=== PATIENT | male | born 1955 | race Caucasian/White ===

== ENCOUNTER 2019-04-12 12:50 | Inpatient (IN) | payer OTHER ==
[2019-04-12 14:06] LABS: #Basophils 0.1 thou/uL (0.0-0.2); #Eosinphils 0.1 thou/uL (0.0-0.7); #Lymphocytes 1.7 thou/uL (1.20-3.40); #Monocytes 0.6 thou/uL (0.11-0.59); #Neutrophils 7.8 thou/uL (1.40-6.50); %Basophils 0.5 % (0.0-1.0); %Eosinophils 1.2 % (0.0-10.0); %Lymphocytes 16.5 % (21.0-51.0); %Monocytes 5.8 % (0.0-10.0); Hemoglobin 6.7 g/dL (14.0-18.0); Mean Corpuscular HGB CONC 33.8 g/dL (32.0-36.0); Mean Corpuscular Hemoglobin 28.6 pg (27.0-31.0); Mean Corpuscular Volume 84.6 fL (78.0-98.0); Mean Platelet Volume 5.2 fL (7.4-10.4); Platelet Count 448 thou/uL (130-400); RBC Distribution Width 13.1 % (11.5-14.5); Red Blood Cell (RBC) Count 2.35 mill/uL (4.70-6.10); White Blood Cell (WBC) Count 10.2 thou/uL (4.8-10.8)
[2019-04-12 14:22] LABS: ALT (SGPT) Less than 7 U/L (8-55); AST (SGOT) 12 U/L (5-34); Albumin 2.9 g/dL (3.4-4.8); Alkaline Phosphatase 46 U/L (40-110); Anion Gap 7 mmol/L (10-20); BUN (Urea Nitrogen) 29 mg/dL (8.4-25.7); Bilirubin, Total Less than 0.2 mg/dL (0.2-1.2); Calc. Creatinine Clearance 0 mL/min (70-130); Calcium 7.5 mg/dL (7.8-10.44); Carbon Dioxide 27 mmol/L (23-31); Chloride 103 mmol/L (98-107); Estimated GFR-MDRD Greater than 90; Globulin 2.2 g/dL (2.4-3.5); Glucose 105 mg/dL (80-115); Potassium 4.4 mmol/L (3.5-5.1); Protein, Total 5.1 g/dL (5.8-8.1); Sodium 133 mmol/L (136-145)
--- NOTE | 2019-04-12 14:22 | RAD ---
Portable frontal chest radiograph: 04/12/2019 COMPARISON: 07/20/2013 HISTORY: Weakness FINDINGS: There is diffuse increased linear interstitial density with pulmonary hyperinflation, stabl e. Stable atherosclerotic calcification of the aortic arch. No pneumothorax or pleural fluid. No focal consolidation or alveolar edema. IMPRESSION: Chronic findings as detailed above. No evidence for acute cardiopulmonary disease.
[2019-04-12] MEDS ORDERED: Nicotine 14 MG PATCH ONE (15:13)
[2019-04-12] MEDS ORDERED: Pantoprazole 40 MG VIAL ONE (15:13)
[2019-04-12 15:16] LABS: Iron 30 ug/dL (65-175); Iron Binding Capacity, Total 206 mcg/dL (261-462)
[2019-04-12] MEDS ORDERED: Pantoprazole 80 MG, Admixture Fee 1 EACH in Sodium Chloride 0.9% 100 ML IVPB SCH (16:45)
[2019-04-12 16:49] VITALS: BMI 14.9
[2019-04-12] MEDS ORDERED: Pantoprazole 80 MG in Sodium Chloride 0.9% 100 ML IVPB SCH (17:15)
[2019-04-12 17:38] LABS: Troponin I Less than 0.010 ng/mL (< 0.028)
[2019-04-12 20:25] LABS: Troponin I 0.013 ng/mL (< 0.028)
[2019-04-12] MEDS: Gabapentin 400 MG CAP PO SCH (20:49)
[2019-04-12] MEDS: cycloSPORINE 0.05% Ophthalmic Droperette EA EYE SCH (20:56)
[2019-04-12] MEDS: Fluticasone Propionate Nasal Spray 16 gm Bottle NASAL SCH (20:56)
[2019-04-12] MEDS: Latanoprost 0.005% Ophth Soln 2.5 ml Bottle EA EYE SCH (20:57)
[2019-04-12] MEDS: Nicotine 21 MG PATCH TOP SCH (21:55)
[2019-04-12 21:58] LABS: Bilirubin Negative (Negative); Blood, Urine Negative (Negative); Clarity Clear (Clear); Glucose, Urine (Dipstick) Normal (Negative); Leukocyte Negative Leu/uL (Negative); Nitrite Negative (Negative); Protein, Urine (Dipstick) Negative (Neg-Trace); Urobilinogen Normal mg/dL (Less than 2)
[2019-04-12 23:06] LABS: Amphetamine Not Detected (NotDetected); Barbiturates Screen Not Detected (NotDetected); Benzodiazepine Screen Not Detected (NotDetected); Cocaine Metabolite Screen Not Detected (NotDetected); Medtox Control Line Valid? VALID (VALID); Medtox Reader # READER 4; Methadone Not Detected (NotDetected); Methamphetamine Not Detected (NotDetected); Opiate Screen Not Detected (NotDetected); Oxycodone Screen Not Detected (NotDetected); Phencyclidine (PCP) Not Detected (NotDetected); THC/Cannabinoid Screen Detected (NotDetected); Tricyclic Screen Not Detected (NotDetected)
--- NOTE | 2019-04-12 23:19 | CON ---
DATE OF CONSULTATION: 04/12/2019 CHIEF COMPLAINT: Weakness. HISTORY OF PRESENT ILLNESS: Mr. Tamayo is a 63-year-old man, who reports generalized weakness for the last couple of months. He has been falling and unable to care for himself well. He has lost 20 pounds over the last 6 months. He has some lower aching generalized abdominal pain most of the time. He has chronic back pain as well but does not take any NSAIDs. He reports constipation for the last 2 to 3 weeks with only one small bowel movement over that time. Finally, today he went into his primary care doctor, Dr. Russo and had a black stool while he was there. He was advised to come on to the emergency room for further care. In the emergency room, he was found to have severe anemia. He has had no nausea or vomiting. No fever. No chest pain or shortness of breath. PAST MEDICAL HISTORY: He reports he was treated for hepatitis C and cured of that virus few years ago in [place]. He has had chronic low back pain. He has had corneal transplant. He reports colonoscopy was done in 2014 and was normal. COPD. PAST SURGICAL HISTORY: Appendectomy, lower back surgery, corneal transplant, and carpal tunnel release. HABITS: The patient smoked 2 to 3 packs per day previously, however, for the last 6 months, he smokes more like half a pack a day. He quit alcohol in the early . He has a history of IV drug use and incarceration in the distant past. FAMILY HISTORY: Positive for prostate cancer in his father. Negative for GI malignancy. ALLERGIES: CODEINE. CURRENT OUTPATIENT MEDICATIONS: Gabapentin. Tramadol, but he does not take it because it causes nausea. He gets injections for his back periodically. He takes acyclovir and multiple eyedrops. He also has Flonase nasal spray. REVIEW OF SYSTEMS: Negative x10 systems reviewed except as stated in the history of present illness. PHYSICAL EXAMINATION: VITAL SIGNS: Temperature 97.9, pulse 84, and blood pressure 116/67. GENERAL: He is in no acute distress. Alert and oriented x3. EYES: Have no scleral icterus. Oropharynx is clear without lesions. He is pale. NECK: He has no cervical or supraclavicular lymphadenopathy. LUNGS: Clear to auscultation bilaterally. HEART: Regular rate and rhythm without murmur. ABDOMEN: Soft. Mild tenderness in the lower abdomen without guarding. Bowel sounds are present. EXTREMITIES: No lower extremity edema. RECTAL: Reveals black melenic stool in the rectal vault. LABORATORY DATA: White blood cell count 10.2, hemoglobin 6.7, and platelets 448. BUN 29 and creatinine 0.78. Iron 30, TIBC 206, and ferritin 51. Bilirubin 0.2, AST 12, ALT 7, alkaline phosphatase 46, and albumin 2.9. IMPRESSION: 1. Gastrointestinal bleed, presenting with melena and weakness. 2. Severe anemia of acute blood loss. 3. History of chronic obstructive pulmonary disease and ongoing tobacco abuse. 4. Weight loss of 20 pounds over the last 6 months. 5. Protein calorie malnutrition with an albumin of 2.9. RECOMMENDATIONS: 1. Proton pump inhibitor drip. 2. We will plan for EGD tomorrow morning. He did have solid food in the emergency room. 3. Transfusion, 2 units this evening. 4. If possible, it would be good to obtain his colonoscopy report from 2014. Job ID: [id number]
[2019-04-13] MEDS: traMADol HCl 50 MG TAB PO PRN ×3 (00:05→22:15)
--- NOTE | 2019-04-13 01:05 | HP ---
CHIEF COMPLAINT: Weakness, status post fall. HISTORY OF PRESENT ILLNESS: Mr. Tamayo is a 63-year-old male with past medical history of COPD, chronic pain, came to the office because of home feeling weak, fell three times at home in the last three weeks, unable to take care of himself. The patient indicated also he had constipation for a week and unable to take care of himself. He wanted to be placed in a mcc, but the patient was so weak, he could not go anywhere, so he returned to the hospital for evaluation. In the ER, the patient was evaluated and found to be severely anemic with hemoglobin of 6.7 with heme-positive stool. In the ER, the patient was given Protonix IV and admitted for further management PAST MEDICAL HISTORY: 1. COPD. 2. Chronic pain. 3. Hyperlipidemia. 4. History of eye problem. PAST SURGICAL HISTORY: 1. Status post carpal tunnel surgery. 2. Status post eye surgery. 3. Status post back surgery as well. CURRENT MEDICATIONS: The patient is on: 1. Acyclovir 800 mg daily. 2. Flonase nasal spray 1 spray daily. 3. Gabapentin 800 mg t.i.d. 4. Xalatan eyedrops at bedtime 1 drop. 5. Restasis eyedrops one drop each eye b.i.d. 6. Symbicort inhaler 160/4.5 two puffs b.i.d. 7. Proventil HFA two puffs q.i.d. p.r.n. 8. Atrovent inhaler 2 puffs q.i.d. 9. Prednisolone acetate 1% suspension 2 drops into affected eye 4 times a day. ALLERGIES: NKDA. FAMILY HISTORY: Nothing contributory. SOCIAL HISTORY: The patient lives alone. Smokes about 10 cigarettes a day. Has been smoking for a long time. No history of alcohol intake. REVIEW OF SYSTEMS: CARDIOVASCULAR: No chest pain, has shortness of breath. RESPIRATORY: No fever or cough. GASTROINTESTINAL: He has abdominal pain for few days and chronic back pain and leg pain. CENTRAL NERVOUS SYSTEM: No headache, dizziness. PHYSICAL EXAMINATION: GENERAL: The patient is alert, awake, oriented x3. VITAL SIGNS: Temperature 98, pulse 84, respirations 20, blood pressure 116/60. HEENT: Head is normocephalic and atraumatic. Pupils are equal and reactive. Nasopharynx is pale and dry. Hard and soft, no lesions. SKIN: Turgor decreased. NECK: Supple. No JVD. LUNGS: Breath sounds diminished bilaterally. Percussion dull bilaterally. No rales or rhonchi. HEART: S1, S2 regular. ABDOMEN: Soft. No tenderness. Normal bowel sounds. RECTAL: Exam done in the ER revealed heme-positive stool and melenic stool. NEUROLOGIC: No focal deficit. LABORATORY DATA: CBC shows WBC 10, hemoglobin 6.7, hematocrit 19, platelets 448. Metabolic panel; sodium 133, potassium 4.4, chloride 103, CO2 27, BUN 29, creatinine 0.7, glucose 105, calcium 7.5, serum iron 30, TIBC 206, ferritin level 51. IMAGING: Chest x-ray, COPD changes, no acute changes. ASSESSMENT: 1. Severe anemia, symptomatic. 2. Possible gastrointestinal bleeding. 3. Chronic obstructive pulmonary disease. 4. Status post multiple falls. 5. Unstable gait. 6. Weakness. 7. Chronic pain. PLAN: 1. Vital signs q.4 hours. 2. Activity as tolerated. 3. Allergies, NKDA. 4. Hep-Lock. 5. Diet, regular. 6. Protonix 40 mg IV piggyback daily. 7. Continue home medications. 8. DuoNeb q.i.d. p.r.n. 9. Transfuse packed red blood cells, 1 unit. 10. CBC, BMP in the morning. 11. GI consult. Job ID: [id number] MTDD
[2019-04-13] MEDS: Mometasone/Formoterol 120 PUFF INHALER INH SCH ×2 (06:41→19:35)
[2019-04-13 07:02] LABS: #Basophils 0.1 thou/uL (0.0-0.2); #Eosinphils 0.3 thou/uL (0.0-0.7); #Lymphocytes 4.7 thou/uL (1.20-3.40); #Monocytes 0.7 thou/uL (0.11-0.59); #Neutrophils 4.2 thou/uL (1.40-6.50); %Basophils 0.7 % (0.0-1.0); %Eosinophils 2.8 % (0.0-10.0); %Lymphocytes 47.7 % (21.0-51.0); %Monocytes 6.8 % (0.0-10.0); Hemoglobin 10.4 g/dL (14.0-18.0); Mean Corpuscular HGB CONC 32.4 g/dL (32.0-36.0); Mean Corpuscular Hemoglobin 27.4 pg (27.0-31.0); Mean Corpuscular Volume 84.6 fL (78.0-98.0); Mean Platelet Volume 5.7 fL (7.4-10.4); Platelet Count 526 thou/uL (130-400); RBC Distribution Width 13.4 % (11.5-14.5); Red Blood Cell (RBC) Count 3.81 mill/uL (4.70-6.10)
[2019-04-13 07:15] LABS: Anion Gap 12 mmol/L (10-20); BUN (Urea Nitrogen) 24 mg/dL (8.4-25.7); Calc. Creatinine Clearance 67 mL/min (70-130); Calcium 8.5 mg/dL (7.8-10.44); Carbon Dioxide 26 mmol/L (23-31); Chloride 104 mmol/L (98-107); Estimated GFR-MDRD Greater than 90; Glucose 92 mg/dL (80-115); Potassium 4.2 mmol/L (3.5-5.1); Sodium 138 mmol/L (136-145)
[2019-04-13] MEDS: Fluticasone Propionate Nasal Spray 16 gm Bottle NASAL SCH ×2 (08:41→20:17)
[2019-04-13] MEDS: cycloSPORINE 0.05% Ophthalmic Droperette EA EYE SCH ×2 (08:42→20:18)
[2019-04-13] MEDS ORDERED: Pantoprazole 40 MG VIAL IVP SCH ×3 (09:00→18:59)
[2019-04-13] MEDS ORDERED: Nicotine 21 MG PATCH TOP SCH (09:00)
[2019-04-13] MEDS ORDERED: EPINEPHrine 1 MG/10 ML Abboject SYRINGE ONE (10:09)
[2019-04-13] MEDS ORDERED: Promethazine HCl 25 MG/ML VIAL ONE (11:45)
[2019-04-13] MEDS ORDERED: Fentanyl 100 MCG/2 ML VIAL ONE (12:52)
[2019-04-13] MEDS: Gabapentin 400 MG CAP PO SCH ×3 (13:20→20:17)
--- NOTE | 2019-04-13 13:41 | CT ---
Exam: Abdomen CT without contrast Pelvic CT without contrast HISTORY: Patient does have ulcer cauterized. Eval for COMPARISON: None FINDINGS: Abdomen CT: There are multiple blebs in both lower lobes along with areas of atelectasis an d groundglass opacities which may represent a component of edema. No evidence of pneumothorax. Heart is enlarged. No significant pericardial fluid Atherosclerosis of a nonaneurysmal aorta Limited evaluation of the solid organs due to the lack of IV contrast. Grossly no solid organ abnorma lity. No gastrohepatic, retrocrural or periportal lymphadenopathy Unremarkable gallbladder Bilaterally no obstructive uropathy. No mesenteric mass, lymphadenopathy, or free air. There is slight stranding of the abdominal mesenter y, nonspecific. No significant fluid collection. . Limited evaluation the gastric mucosa. No obvious inflammatory change along the lesser curve greater vertebra of the stomach. No evidence of de finite extraluminal air along the greater or lesser curvature of the stomach. Note, there are small gas bubbles along the expected region of the duodenum which may be intraluminal. However, small pocke ts of extraluminal air cannot be excluded. These gas bubbles may be associated with the adjacent small bowel loop or colon. Limited evaluation of the alimentary canal. No evidence of bowel obstruction. There is fecal material in a nondistended, nondilated colon. CT PELVIS: Urinary bladder is unremarkable. There is free fluid in the pelvis. No mass, lymphadenopat hy or free air. There are no lytic or blastic lesions in the osseous IMPRESSION: Small pockets of gas bubble in the right upper quadrant, near the duodenum. Gas bubbles may be intral uminal. However, small extraluminal pockets of air due to perforation cannot be excluded. Results study discussed with Dr. Billings 04/13/2019 at 1:38 PM Code CR
--- NOTE | 2019-04-13 15:36 | OP ---
DATE OF PROCEDURE: 04/13/2019 PROCEDURE PERFORMED: Esophagogastroduodenoscopy with control of hemorrhage and biopsy. PREOPERATIVE DIAGNOSES: 1. Upper gastrointestinal bleed. 2. Anemia of acute blood loss. DESCRIPTION OF PROCEDURE: Informed consent was obtained from the patient. He was sedated with total intravenous anesthesia. The bite block was placed and the endoscope was advanced easily to the second portion of the duodenum and retroflexion was performed in the stomach. The esophagus was normal. The stomach had a large deep 2.5 cm ulcer on the proximal side of the incisura. There was a visible vessel in the base, that appeared high risk for rebleed. The ulcer was injected with epinephrine. A total of 7 mL of 1:10,000 epinephrine. The vessel bled actively with touch of the Gold probe. The vessel was cauterized extensively with the Gold probe 10-[place]izen [place] at 18 barry ultimately with good hemostasis achieved. The pylorus and first and second portions of the duodenum were unremarkable. IMPRESSION: 1. Deep 2.5 cm ulcer at the incisura with a visible vessel in the base, that appears high risk for rebleed. The ulcer was injected with epinephrine 7 mL. The vessel bled actively. The vessel was extensively cauterized with a 10-[place] Gold probe with good hemostasis. 2. Otherwise normal esophagogastroduodenoscopy. RECOMMENDATIONS: 1. Proton pump inhibitor drip for 72 hours. 2. If he bleeds again, then I recommend against repeating attempted endoscopic therapy as this is a very large vessel in the base of the ulcer and was already extensively cauterized. This is not amenable to clipping due to the fibrous base of the ulcer. If he bleeds again, he just needs to go straight to surgery. 3. Transfuse as needed. Job ID: [id number]
[2019-04-13] MEDS: prednisoLONE 1% Ophth Susp 5 ml Bottle EA EYE SCH (16:28)
[2019-04-13] MEDS: Acyclovir 800 mg Tablet PO SCH (16:28)
[2019-04-13] MEDS ORDERED: Pantoprazole 80 MG in Sodium Chloride 0.9% 100 ML IVP SCH (18:59)
[2019-04-13] MEDS: Latanoprost 0.005% Ophth Soln 2.5 ml Bottle EA EYE SCH (20:18)
[2019-04-13] MEDS: Nicotine 21 MG PATCH TOP SCH (21:25)
[2019-04-13] MEDS: Pantoprazole 80 MG, Admixture Fee 1 EACH in Sodium Chloride 0.9% 100 ML IVPB SCH (22:14)
[2019-04-14] MEDS: traMADol HCl 50 MG TAB PO PRN ×3 (04:43→20:35)
[2019-04-14] MEDS: Mometasone/Formoterol 120 PUFF INHALER INH SCH ×2 (08:04→19:12)
[2019-04-14] MEDS: Gabapentin 400 MG CAP PO SCH ×3 (08:52→20:35)
[2019-04-14] MEDS: Acyclovir 800 mg Tablet PO SCH (08:52)
[2019-04-14] MEDS: cycloSPORINE 0.05% Ophthalmic Droperette EA EYE SCH ×2 (08:53→20:34)
[2019-04-14] MEDS: Fluticasone Propionate Nasal Spray 16 gm Bottle NASAL SCH ×2 (08:53→20:33)
[2019-04-14] MEDS: Pantoprazole 80 MG, Admixture Fee 1 EACH in Sodium Chloride 0.9% 100 ML IVPB SCH ×2 (09:12→20:33)
[2019-04-14 11:46] LABS: #Basophils 0.1 thou/uL (0.0-0.2); #Eosinphils 0.3 thou/uL (0.0-0.7); #Lymphocytes 3.1 thou/uL (1.20-3.40); #Monocytes 0.6 thou/uL (0.11-0.59); %Basophils 0.7 % (0.0-1.0); %Eosinophils 2.9 % (0.0-10.0); %Monocytes 6.7 % (0.0-10.0); %Neutrophils 55.7 % (42.0-75.0); Hemoglobin 9.3 g/dL (14.0-18.0); Mean Corpuscular HGB CONC 33.1 g/dL (32.0-36.0); Mean Corpuscular Hemoglobin 28.4 pg (27.0-31.0); Mean Corpuscular Volume 85.9 fL (78.0-98.0); Mean Platelet Volume 5.1 fL (7.4-10.4); Platelet Count 466 thou/uL (130-400); RBC Distribution Width 13.3 % (11.5-14.5); Red Blood Cell (RBC) Count 3.27 mill/uL (4.70-6.10)
--- NOTE | 2019-04-14 11:57 | PRG ---
DATE OF SERVICE: 04/14/2019 This is a cross coverage for Dr. Finn Billings. SUBJECTIVE: This is a 63-year-old male, had EGD done by Dr. Finn Billings yesterday. He was found to have a very large ulceration over the incisura angularis. He underwent BICAP probe therapy and he has done well. He did have some abdominal pain after the procedure and had a CAT scan. The CAT did not show any pathology. This morning, he appears comfortable, but still has mild abdominal discomfort. No nausea, no vomiting. Not having any stool. He has multiple symptoms like back pain, leg pain, joint pain, etc. PHYSICAL EXAMINATION: GENERAL: He appears comfortable. He is thin built. VITAL SIGNS: Stable. Afebrile. Pulse 59, blood pressure 155/69. CARDIOVASCULAR SYSTEM AND LUNGS: Within normal limits. ABDOMEN: Soft. No organomegaly. No tenderness. No masses. The physical exam is actually very benign. The abdomen does not show any active findings. RECOMMENDATIONS: 1. CBC today. 2. Continue IV Protonix. 3. Regular diet today. Job ID: [id number]
[2019-04-14] MEDS: prednisoLONE 1% Ophth Susp 5 ml Bottle EA EYE SCH (12:22)
[2019-04-14 14:37] LABS: Troponin I Less than 0.010 ng/mL (< 0.028)
[2019-04-14] MEDS: Latanoprost 0.005% Ophth Soln 2.5 ml Bottle EA EYE SCH (20:34)
[2019-04-14 21:07] LABS: Troponin I 0.024 ng/mL (< 0.028)
[2019-04-14] MEDS: Nicotine 21 MG PATCH TOP SCH (21:38)
[2019-04-15] MEDS: traMADol HCl 50 MG TAB PO PRN ×3 (02:25→21:03)
[2019-04-15 04:28] LABS: #Basophils 0.1 thou/uL (0.0-0.2); #Eosinphils 0.3 thou/uL (0.0-0.7); #Lymphocytes 3.3 thou/uL (1.20-3.40); #Monocytes 0.8 thou/uL (0.11-0.59); #Neutrophils 4.6 thou/uL (1.40-6.50); %Basophils 0.8 % (0.0-1.0); %Eosinophils 3.5 % (0.0-10.0); %Lymphocytes 36.7 % (21.0-51.0); %Monocytes 8.3 % (0.0-10.0); %Neutrophils 50.8 % (42.0-75.0); Hemoglobin 8.5 g/dL (14.0-18.0); Mean Corpuscular HGB CONC 33.5 g/dL (32.0-36.0); Mean Corpuscular Hemoglobin 28.9 pg (27.0-31.0); Mean Corpuscular Volume 86.3 fL (78.0-98.0); Mean Platelet Volume 5.7 fL (7.4-10.4); Platelet Count 436 thou/uL (130-400); RBC Distribution Width 13.3 % (11.5-14.5); Red Blood Cell (RBC) Count 2.92 mill/uL (4.70-6.10)
[2019-04-15 04:43] LABS: Anion Gap 11 mmol/L (10-20); BUN (Urea Nitrogen) 16 mg/dL (8.4-25.7); Calc. Creatinine Clearance 58 mL/min (70-130); Calcium 8.1 mg/dL (7.8-10.44); Carbon Dioxide 26 mmol/L (23-31); Chloride 102 mmol/L (98-107); Estimated GFR-MDRD 82; Glucose 114 mg/dL (80-115); Sodium 135 mmol/L (136-145)
[2019-04-15] MEDS: Mometasone/Formoterol 120 PUFF INHALER INH SCH ×2 (06:53→18:13)
[2019-04-15] MEDS: Pantoprazole 80 MG, Admixture Fee 1 EACH in Sodium Chloride 0.9% 100 ML IVPB SCH ×2 (08:07→20:59)
[2019-04-15] MEDS: prednisoLONE 1% Ophth Susp 5 ml Bottle EA EYE SCH (08:08)
[2019-04-15] MEDS: Acyclovir 800 mg Tablet PO SCH (08:09)
[2019-04-15] MEDS: Fluticasone Propionate Nasal Spray 16 gm Bottle NASAL SCH ×2 (08:09→20:03)
[2019-04-15] MEDS: Gabapentin 400 MG CAP PO SCH ×3 (08:09→20:00)
[2019-04-15] MEDS: cycloSPORINE 0.05% Ophthalmic Droperette EA EYE SCH ×2 (08:09→20:02)
--- NOTE | 2019-04-15 11:09 | PRG ---
DATE OF SERVICE: 04/15/2019 SUBJECTIVE: This is a 63-year-old male, who has an EGD done 2 days ago gastric ulcer. The patient on clear liquid diet for 24 hours and advance regular diet yesterday. He is doing well. No abdominal pain. No nausea. No vomiting. He has had no stool today. The blood pressure trending down slowly. On 04/13/2019, he had a hemoglobin of 10.4 dropping to 9.3 yesterday and to 8.5. However, he has had no overt bleeding. He has really no complaints except for some vague abdominal pain. OBJECTIVE: VITAL SIGNS: Afebrile, pulse is 83, and blood pressure is 134/63. CARDIOVASCULAR SYSTEM AND LUNGS: Within normal limits. ABDOMEN: Soft. Abdomen is nontender. No organomegaly or masses. Bowel sounds normal. CLINICAL IMPRESSION: 1. Gastrointestinal bleeding. 2. Gastric ulcer, status post BICAP therapy. 3. Anemia due to blood loss. 4. Drop in blood count would be more like hemodilution bleeding. He has no overt bleeding. RECOMMENDATIONS: 1. Continue PPI. 2. Follow up H and H. 3. Transfuse p.r.n. Job ID: [id number]
[2019-04-15] MEDS: Latanoprost 0.005% Ophth Soln 2.5 ml Bottle EA EYE SCH (20:03)
[2019-04-15] MEDS: Nicotine 21 MG PATCH TOP SCH (21:05)
[2019-04-16] MEDS: traMADol HCl 50 MG TAB PO PRN ×2 (04:12→13:00)
[2019-04-16 05:05] LABS: #Eosinphils 0.3 thou/uL (0.0-0.7); #Lymphocytes 2.5 thou/uL (1.20-3.40); #Monocytes 0.7 thou/uL (0.11-0.59); #Neutrophils 7.6 thou/uL (1.40-6.50); %Basophils 0.3 % (0.0-1.0); %Eosinophils 2.5 % (0.0-10.0); %Lymphocytes 22.8 % (21.0-51.0); %Monocytes 6.4 % (0.0-10.0); Hemoglobin 6.9 g/dL (14.0-18.0); Mean Corpuscular HGB CONC 32.8 g/dL (32.0-36.0); Mean Corpuscular Hemoglobin 28.6 pg (27.0-31.0); Mean Corpuscular Volume 87.2 fL (78.0-98.0); Mean Platelet Volume 5.6 fL (7.4-10.4); Platelet Count 453 thou/uL (130-400); RBC Distribution Width 13.7 % (11.5-14.5); Red Blood Cell (RBC) Count 2.41 mill/uL (4.70-6.10); White Blood Cell (WBC) Count 11.2 thou/uL (4.8-10.8)
[2019-04-16 05:21] LABS: ALT (SGPT) Less than 7 U/L (8-55); AST (SGOT) 8 U/L (5-34); Albumin 2.8 g/dL (3.4-4.8); Alkaline Phosphatase 45 U/L (40-110); Anion Gap 10 mmol/L (10-20); BUN (Urea Nitrogen) 31 mg/dL (8.4-25.7); Bilirubin, Total Less than 0.2 mg/dL (0.2-1.2); Calc. Creatinine Clearance 68 mL/min (70-130); Calcium 8.1 mg/dL (7.8-10.44); Carbon Dioxide 28 mmol/L (23-31); Chloride 101 mmol/L (98-107); Estimated GFR-MDRD Greater than 90; Globulin 2.2 g/dL (2.4-3.5); Glucose 133 mg/dL (80-115); Potassium 4.1 mmol/L (3.5-5.1); Sodium 135 mmol/L (136-145)
[2019-04-16 05:44] LABS: HBCM Index 0.05 S/CO (0-0.79); HBSAg Index 0.15 S/CO (0-0.99); Hep A IgM AB Non-Reactive (NonReactive); Hep A IgM S/CO 0.22 S/CO (0-0.79); Hep B Surf Ag Non-Reactive S/CO (NonReactive); Hepatitis B Core IgM Abs Non-Reactive (NonReactive)
[2019-04-16 05:49] LABS: Hep C IgG Ab Reflex HepC Qnt (NonReactive)
[2019-04-16 05:50] LABS: Hep C Index 10.86 S/CO (0-0.79)
[2019-04-16] MEDS: Pantoprazole 80 MG, Admixture Fee 1 EACH in Sodium Chloride 0.9% 100 ML IVPB SCH (08:07)
[2019-04-16] MEDS: prednisoLONE 1% Ophth Susp 5 ml Bottle EA EYE SCH (09:16)
[2019-04-16] MEDS: Gabapentin 400 MG CAP PO SCH ×3 (09:16→21:19)
[2019-04-16] MEDS: Acyclovir 800 mg Tablet PO SCH (09:16)
[2019-04-16] MEDS: Fluticasone Propionate Nasal Spray 16 gm Bottle NASAL SCH ×2 (09:19→21:15)
[2019-04-16] MEDS: cycloSPORINE 0.05% Ophthalmic Droperette EA EYE SCH ×2 (10:12→21:17)
[2019-04-16] MEDS: Mometasone/Formoterol 120 PUFF INHALER INH SCH ×2 (10:35→18:39)
--- NOTE | 2019-04-16 18:48 | PRG ---
DATE OF SERVICE: 04/16/2019 SUBJECTIVE: Mr. Tamayo passed a 3 or 4 black large stools today. He states that they had formed but were black. He only had 1 small formed black stool yesterday. OBJECTIVE: VITAL SIGNS: Temperature 98.4, blood pressure 119/63, pulse 80. GENERAL: He is in no acute distress. He is awake and alert, oriented x3. LUNGS: Clear to auscultation bilaterally. HEART: Regular rate and rhythm without murmur. ABDOMEN: Soft, tender in the epigastric region without guarding. Bowel sounds are present. EXTREMITIES: No lower extremity edema. LABORATORY DATA: Hemoglobin decreased to 6.9 today from 8.5 yesterday. IMPRESSION: 1. Large gastric ulcer with bleeding vessel cauterized on 04/13/2019. He did well for the first few days, however, he today started passing black stool again and his hemoglobin dropped down. He is likely having some rebleed from the ulcer. 2. Hepatitis C antibody positive. RNA level pending. RECOMMENDATIONS: 1. Continue proton pump inhibitor drip. 2. 2 units of transfusion today. 3. Full liquids tonight and then n.p.o. past midnight. We will plan for endoscopy tomorrow. Dr. Ignacio will be on doing procedures tomorrow. Job ID: [id number]
[2019-04-16] MEDS: Latanoprost 0.005% Ophth Soln 2.5 ml Bottle EA EYE SCH (21:16)
[2019-04-16] MEDS: Nicotine 21 MG PATCH TOP SCH (21:18)
[2019-04-16] MEDS: HYDROcodone/Acetaminophen 5/325 mg Tablet PO PRN (21:18)
[2019-04-17] MEDS: Pantoprazole 80 MG, Admixture Fee 1 EACH in Sodium Chloride 0.9% 100 ML IVPB SCH (02:17)
[2019-04-17 05:24] LABS: #Basophils 0.1 thou/uL (0.0-0.2); #Eosinphils 0.3 thou/uL (0.0-0.7); #Lymphocytes 2.9 thou/uL (1.20-3.40); #Monocytes 0.8 thou/uL (0.11-0.59); #Neutrophils 6.2 thou/uL (1.40-6.50); %Basophils 0.6 % (0.0-1.0); %Eosinophils 3.1 % (0.0-10.0); %Lymphocytes 28.4 % (21.0-51.0); %Monocytes 7.4 % (0.0-10.0); %Neutrophils 60.5 % (42.0-75.0); Hemoglobin 9.2 g/dL (14.0-18.0); Mean Corpuscular HGB CONC 33.9 g/dL (32.0-36.0); Mean Corpuscular Hemoglobin 29.1 pg (27.0-31.0); Mean Corpuscular Volume 85.8 fL (78.0-98.0); Mean Platelet Volume 5.5 fL (7.4-10.4); Platelet Count 419 thou/uL (130-400); RBC Distribution Width 14.1 % (11.5-14.5); Red Blood Cell (RBC) Count 3.15 mill/uL (4.70-6.10); White Blood Cell (WBC) Count 10.3 thou/uL (4.8-10.8)
[2019-04-17 05:42] LABS: Anion Gap 9 mmol/L (10-20); BUN (Urea Nitrogen) 23 mg/dL (8.4-25.7); Calc. Creatinine Clearance 76 mL/min (70-130); Calcium 8.2 mg/dL (7.8-10.44); Carbon Dioxide 29 mmol/L (23-31); Chloride 100 mmol/L (98-107); Estimated GFR-MDRD Greater than 90; Glucose 94 mg/dL (80-115); Potassium 4.1 mmol/L (3.5-5.1); Sodium 134 mmol/L (136-145)
[2019-04-17] MEDS: Mometasone/Formoterol 120 PUFF INHALER INH SCH ×2 (06:42→17:54)
[2019-04-17] MEDS: HYDROcodone/Acetaminophen 5/325 mg Tablet PO PRN ×3 (09:14→20:52)
[2019-04-17] MEDS: Gabapentin 400 MG CAP PO SCH ×3 (09:17→20:45)
[2019-04-17] MEDS: Acyclovir 800 mg Tablet PO SCH (09:17)
[2019-04-17] MEDS: Fluticasone Propionate Nasal Spray 16 gm Bottle NASAL SCH ×2 (09:17→20:45)
--- NOTE | 2019-04-17 11:20 | PQF ---
Date: 04-17-19 ATTN: DR. MANOHAR DURÁN Please exercise your independent, professional judgment in responding to the clarification form. Clinical indicators are provided on the bottom of this form for your review Please check appropriate box(s): [ y] Protein Calorie Malnutrition: [ ] Mild [ y] Moderate [ ] Severe [ ] Other Malnutrition (please specify) __ [ ] Other diagnosis [ ] Unable to determine In addition, please specify: Present on Admission (POA): [ y] Yes [ ] No [ ] Unable to determine CLINICAL INDICATORS - SIGNS / SYMPTOMS / LABS: NUTRITION CONSULT 04-13-19: BMI 14.9 H&P: 04-12-19: TURGOR DECREASED CONSULT NOTE DR. ASKEW 04-12-19: HE HAS LOST 20 #OVER THE LAST 6 MONTHS. PROTEIN CALORIE MALNUTRITION WITH AN ALBUMIN OF 2.9 ENGINE ASSEMBLER CONSULT 04-13-19: Triggers MST 3 (-14-23 lb wt loss, eating poorly d/ t decreased appetite); Pt has no teeth and wants mech soft foods once diet advanced ; his appetite has been poor the past 3 weeks d/t stomach pain ; Typically eats 1 "good" meal per day; denied supplement use. MD reports 20 lb wt loss x [address] observed squared shoulders with bones protruding; moderate orbital fat pad loss; moderate muscle loss tricep and biceps RISK FACTORS: ENGINE ASSEMBLER CONSULT 04-13-19: his appetite has been poor the past 3 weeks d/t stomach pain ; He follows a regular diet at home, but often can't afford food d/t living on SSI/ Medicaid. TREATMENT: ENGINE ASSEMBLER CONSULT 04-13-19: 1. Recommend liberalized regular diet once medically feasible. 2. Recommend Ensure Enlive BID between meals once medically feasible, prefers vanilla. 3. Recommend daily MVI. 4. Recommend CM referral for resources to obtain food. 5. Pt is at risk for refeeding syndrome, monitor for electrolyte imbalances potassium phos and mg, edema, and abnormal blood glucose. Moderate Malnutrition (in acute illness) Energy Intake: <75% of estimated energy requirement for > 7 days Weight Loss: 1-2%/1 week; 5%/ 1 month; 7.5%/3 months Other: mild body fat loss; mild muscle mass loss; mild fluid accumulation; Severe Malnutrition (in acute illness) Energy Intake: < 50% of estimated energy requirement for > 5 days Weight Loss: >1-2%/1 week; >5%/1 month; >7.5%/3 months Other: moderate body fat loss; moderate muscle mass loss; moderate- severe fluid accumulation; measurably reduced front desk admin strength Moderate Malnutrition (in chronic illness) Energy Intake: <75% of estimated energy requirement for >1 month Weight Loss: 5%/1 month; 7.5%/3 months; 10%/6 months; 20%/1 year Other: mild body fat loss; mild muscle mass loss; mild fluid accumulation Severe Malnutrition (in chronic illness) Energy Intake: <75% of estimated energy requirement for >1 month Weight Loss: >5%/1 month; >7.5%/3 months; >10%/6 months; >20%/1 year Other: severe body fat loss; severe muscle mass loss; severe fluid accumulation ; measurably reduced front desk admin strength (This form is maintained as a part of the permanent medical record) 2014 [email or web address] All Rights Reserved MELANI [email or web address] Office: [phone] [facility]OS[facility]ITALM[facility]
[2019-04-17] MEDS: cycloSPORINE 0.05% Ophthalmic Droperette EA EYE SCH ×2 (11:44→20:46)
--- NOTE | 2019-04-17 13:24 | PQF ---
DATE: 04-17-19 ATTN: DR. MIUGEL GIBSON Please exercise your independent, professional judgment in responding to the clarification form. Clinical indicators are provided on the bottom of this form for your review Please check appropriate box(s): [ ] Hyponatremia please specify etiology, if known [ ] Insignificant Lab Values [ ] Other diagnosis [ x ] Unable to determine In addition, please specify: Present on Admission (POA): [ ] Yes [ x ] No [ ] Unable to determine CLINICAL INDICATORS - SIGNS / SYMPTOMS / LABS: SODIUM: 04-09-19: 135 04-10-19: 134 04-12-19: 134 04-14-19: 133 04-14-19: 133 04-15-19: 131 04-15-19: 130 04-16-19: 129 04-17-19: 133 RISK FACTORS: CONSULT NOTE DR. HOOD 04-16-19: PUMA WITH CKD TREATMENTS: MONITORING LABS 04-07-19 TO 04-17-19 ER NOTES 04-07-19: NS IVF (This form is maintained as a part of the permanent medical record) 2014 [employer] All Rights Reserved MELANI [email or web address] Office: [phone] [facility]ENTER[facility]
[2019-04-17] MEDS ORDERED: ePHEDrine/0.9% NaCl/PF SYRINGE 50 mg/10 ml ONE (13:57)
[2019-04-17] MEDS ORDERED: Promethazine HCl 25 MG/ML VIAL IM PRN (14:00)
[2019-04-17] MEDS ORDERED: Promethazine HCl 25 MG/ML VIAL SLOW IVP PRN (14:00)
[2019-04-17] MEDS ORDERED: Ondansetron HCl/PF 4 MG/2 ML Vial IVP PRN (14:00)
[2019-04-17] MEDS: prednisoLONE 1% Ophth Susp 5 ml Bottle EA EYE SCH (15:16)
[2019-04-17] MEDS ORDERED: ePHEDrine 50 MG/ML VIAL ONE (15:45)
[2019-04-17] MEDS ORDERED: Lidocaine 1% PF 5 ML VIAL ONE (15:45)
[2019-04-17] MEDS ORDERED: PROPOFOL 200 MG/20 ML VIAL ONE (15:45)
--- NOTE | 2019-04-17 20:23 | OP ---
DATE OF PROCEDURE: 04/17/2019 PROCEDURE PERFORMED: Esophagogastroduodenoscopy. PREPROCEDURE DIAGNOSES: Upper gastrointestinal hemorrhage with recent known incisura ulcer, large with high-risk stigmata for rebleeding, now with recurrent melena. POSTPROCEDURE DIAGNOSES: 1. Ulcer at incisura of the stomach with a couple of black pigmented areas, but no visible vessels. No stigmata of high risk for rebleeding. White base. 2. Paige esophagitis. RECOMMENDATIONS: 1. Diflucan orally. 2. Change Protonix drip to IV q.12 with next bag. 3. Monitor hemoglobin and hematocrit. DESCRIPTION OF PROCEDURE: After the patient was informed of the risks, benefits, and possible complications of endoscopy including perforation, reaction to medication, and aspiration, informed consent was obtained. The endoscope was advanced through the esophagus, stomach, to the second and third portions of the duodenum and slowly removed. The esophagus was normal. The stomach was notable for a 1.5 cm ulcer on the incisura of the stomach. It was white base. No stigmata of high risk for rebleeding. Retroflexed views revealed normal cardia of the stomach. The duodenum was normal. The second and third portions were normal. In the esophagus, there was adherent areas of white plaque consistent with Paige. The scope was removed. The patient tolerated the procedure well without complications. Job ID: [id number]
[2019-04-17] MEDS: Pantoprazole 40 MG VIAL IVP SCH (20:44)
[2019-04-17] MEDS: Latanoprost 0.005% Ophth Soln 2.5 ml Bottle EA EYE SCH (20:45)
[2019-04-17] MEDS: Nicotine 21 MG PATCH TOP SCH (20:46)
[2019-04-18] MEDS: Pantoprazole 80 MG, Admixture Fee 1 EACH in Sodium Chloride 0.9% 100 ML IVPB SCH ×2 (00:32→11:05)
[2019-04-18] MEDS: HYDROcodone/Acetaminophen 5/325 mg Tablet PO PRN ×4 (03:16→23:25)
[2019-04-18] MEDS: Mometasone/Formoterol 120 PUFF INHALER INH SCH ×2 (06:31→20:16)
[2019-04-18 07:21] LABS: Hemoglobin 10.6 g/dL (14.0-18.0)
[2019-04-18] MEDS: Acyclovir 800 mg Tablet PO SCH (09:10)
[2019-04-18] MEDS: Fluconazole 100 MG TAB PO SCH (09:10)
[2019-04-18] MEDS: Gabapentin 400 MG CAP PO SCH ×4 (09:10→20:26)
[2019-04-18] MEDS: Pantoprazole 40 MG VIAL IVP SCH (09:11)
[2019-04-18] MEDS: prednisoLONE 1% Ophth Susp 5 ml Bottle EA EYE SCH (09:11)
[2019-04-18] MEDS: Fluticasone Propionate Nasal Spray 16 gm Bottle NASAL SCH ×2 (09:11→20:26)
[2019-04-18] MEDS: cycloSPORINE 0.05% Ophthalmic Droperette EA EYE SCH ×2 (11:05→20:26)
[2019-04-18 14:09] LABS: Hep C PCR-Quant HCV Not Detected IU/mL (.)
--- NOTE | 2019-04-18 15:50 | PRG ---
DATE OF SERVICE: 04/18/2019 SUBJECTIVE: Mr. Tamayo has had no bowel movement today. No abdominal pain. His hemoglobin is 10.6 today. OBJECTIVE: VITAL SIGNS: Temperature 99.3, pulse 107, blood pressure 119/57. GENERAL: He is in no acute distress. Alert and oriented x3. LUNGS: Have some expiratory wheezes. HEART: Regular rate and rhythm. ABDOMEN: Soft, nontender, nondistended. Bowel sounds are present. EXTREMITIES: No lower extremity edema. IMPRESSION: 1. Gastric ulcer on the proximal side of the incisura. This is likely secondary to NSAIDs and smoking. Biopsies were negative for Helicobacter pylori. 2. Paige esophagitis. RECOMMENDATIONS: 1. Change pantoprazole to 40 mg twice daily by mouth for the next 2 weeks and then 40 mg once daily. 2. Repeat EGD in 6 to 8 weeks to verify healing of the ulcer. 3. Complete a 14-day course of fluconazole 100 mg daily. This was likely secondary to the nasal steroid. 4. The patient requests that we change his diet to pureed due to his lack of teeth. 5. I will sign off. Please call if GI can be of assistance. Job ID: [id number]
[2019-04-18] MEDS: Latanoprost 0.005% Ophth Soln 2.5 ml Bottle EA EYE SCH (20:26)
[2019-04-18] MEDS: Nicotine 21 MG PATCH TOP SCH (21:20)
[2019-04-19 06:00] LABS: Anion Gap 13 mmol/L (10-20); BUN (Urea Nitrogen) 20 mg/dL (8.4-25.7); Calc. Creatinine Clearance 70 mL/min (70-130); Calcium 8.2 mg/dL (7.8-10.44); Carbon Dioxide 26 mmol/L (23-31); Chloride 101 mmol/L (98-107); Estimated GFR-MDRD Greater than 90; Glucose 118 mg/dL (80-115); Potassium 4.1 mmol/L (3.5-5.1); Sodium 136 mmol/L (136-145)
[2019-04-19 06:20] LABS: Band 24 % (5-11); Eosinophils 1 % (0-10); Hemoglobin 8.7 g/dL (14.0-18.0); Lymphocytes 13 % (21-51); MDiff Complete? YES; Mean Corpuscular HGB CONC 32.7 g/dL (32.0-36.0); Mean Corpuscular Hemoglobin 28.8 pg (27.0-31.0); Mean Corpuscular Volume 88.1 fL (78.0-98.0); Mean Platelet Volume 5.7 fL (7.4-10.4); Monocytes 4 % (0-10); Neutrophil 58 % (42-75); Platelet Count 466 thou/uL (130-400); RBC Distribution Width 14.4 % (11.5-14.5); Red Blood Cell (RBC) Count 3.01 mill/uL (4.70-6.10); White Blood Cell (WBC) Count 20.5 thou/uL (4.8-10.8)
[2019-04-19] MEDS: Mometasone/Formoterol 120 PUFF INHALER INH SCH ×2 (06:52→18:02)
[2019-04-19] MEDS: HYDROcodone/Acetaminophen 5/325 mg Tablet PO PRN ×3 (08:17→20:30)
[2019-04-19] MEDS: Fluconazole 100 MG TAB PO SCH (08:18)
[2019-04-19] MEDS: Acyclovir 800 mg Tablet PO SCH (08:18)
[2019-04-19] MEDS: Gabapentin 400 MG CAP PO SCH ×3 (08:18→20:29)
[2019-04-19] MEDS: Fluticasone Propionate Nasal Spray 16 gm Bottle NASAL SCH ×2 (08:20→20:28)
[2019-04-19] MEDS: prednisoLONE 1% Ophth Susp 5 ml Bottle EA EYE SCH (08:20)
[2019-04-19] MEDS: cycloSPORINE 0.05% Ophthalmic Droperette EA EYE SCH ×3 (09:49→20:29)
--- NOTE | 2019-04-19 16:49 | RAD ---
EXAM: Chest 2 views: HISTORY: Chest pain COMPARISON: 07/20/2013 FINDINGS: There is a normal-sized cardiomediastinal silhouette. Hyperexpansion of the lungs may be secondary t o COPD. Increased interstitial markings are present. Biapical pleural thickening is stable. There are questionable subtle infiltrates in the left lower lobe. Degenerative changes are seen in the spi ne. IMPRESSION: Possible left lower lobe infiltrates.
[2019-04-19] MEDS: Latanoprost 0.005% Ophth Soln 2.5 ml Bottle EA EYE SCH (20:29)
[2019-04-19] MEDS: Nicotine 21 MG PATCH TOP SCH (20:30)
[2019-04-20] MEDS: HYDROcodone/Acetaminophen 5/325 mg Tablet PO PRN ×4 (02:16→19:57)
[2019-04-20 05:11] LABS: #Eosinphils 0.2 thou/uL (0.0-0.7); #Lymphocytes 2.1 thou/uL (1.20-3.40); #Neutrophils 9.1 thou/uL (1.40-6.50); %Basophils 0.1 % (0.0-1.0); %Eosinophils 1.5 % (0.0-10.0); %Lymphocytes 16.6 % (21.0-51.0); %Neutrophils 73.8 % (42.0-75.0); Hemoglobin 8.8 g/dL (14.0-18.0); Mean Corpuscular HGB CONC 32.1 g/dL (32.0-36.0); Mean Corpuscular Hemoglobin 28.5 pg (27.0-31.0); Mean Corpuscular Volume 88.9 fL (78.0-98.0); Mean Platelet Volume 5.6 fL (7.4-10.4); Platelet Count 526 thou/uL (130-400); RBC Distribution Width 14.3 % (11.5-14.5); Red Blood Cell (RBC) Count 3.08 mill/uL (4.70-6.10); White Blood Cell (WBC) Count 12.4 thou/uL (4.8-10.8)
[2019-04-20] MEDS: Mometasone/Formoterol 120 PUFF INHALER INH SCH ×2 (06:49→20:08)
[2019-04-20] MEDS: Fluconazole 100 MG TAB PO SCH (08:00)
[2019-04-20] MEDS: Gabapentin 400 MG CAP PO SCH ×3 (08:00→19:50)
[2019-04-20] MEDS: Fluticasone Propionate Nasal Spray 16 gm Bottle NASAL SCH ×2 (08:01→19:50)
[2019-04-20] MEDS: prednisoLONE 1% Ophth Susp 5 ml Bottle EA EYE SCH (08:02)
[2019-04-20] MEDS: Acyclovir 800 mg Tablet PO SCH (09:17)
[2019-04-20] MEDS: cycloSPORINE 0.05% Ophthalmic Droperette EA EYE SCH ×2 (12:39→19:50)
[2019-04-20] MEDS: Nicotine 21 MG PATCH TOP SCH (19:51)
[2019-04-20] MEDS: Latanoprost 0.005% Ophth Soln 2.5 ml Bottle EA EYE SCH (19:57)
[2019-04-21] MEDS: HYDROcodone/Acetaminophen 5/325 mg Tablet PO PRN ×4 (02:12→20:16)
[2019-04-21] MEDS: Mometasone/Formoterol 120 PUFF INHALER INH SCH ×2 (07:12→20:12)
[2019-04-21] MEDS: Acyclovir 800 mg Tablet PO SCH (08:16)
[2019-04-21] MEDS: Gabapentin 400 MG CAP PO SCH ×3 (08:16→20:16)
[2019-04-21] MEDS: Fluconazole 100 MG TAB PO SCH (08:16)
[2019-04-21] MEDS: Fluticasone Propionate Nasal Spray 16 gm Bottle NASAL SCH ×2 (08:18→20:18)
[2019-04-21] MEDS: prednisoLONE 1% Ophth Susp 5 ml Bottle EA EYE SCH (08:18)
[2019-04-21] MEDS: cycloSPORINE 0.05% Ophthalmic Droperette EA EYE SCH ×2 (08:18→20:18)
--- NOTE | 2019-04-21 09:53 | EKG ---
Test Reason : Blood Pressure : / mmHG Vent. Rate : 080 BPM Atrial Rate : 080 BPM P-R Int : 120 ms QRS Dur : 092 ms QT Int : 404 ms P-R-T Axes : 090 089 086 degrees QTc Int : 465 ms Normal sinus rhythm Normal ECG Confirmed by ARCELIA TOBAR D.O. ([id number]), desk editor IZABEL DEL ROSARIO ([id number]) on 04/21/2019 9:53:21 AM Referred By: Confirmed By:ARCELIA TOBAR D.O.
[2019-04-21] MEDS: Nicotine 21 MG PATCH TOP SCH (20:16)
[2019-04-21] MEDS: Cefdinir 300 MG CAP PO SCH (20:16)
[2019-04-21] MEDS: Latanoprost 0.005% Ophth Soln 2.5 ml Bottle EA EYE SCH (20:18)
[2019-04-22] MEDS: HYDROcodone/Acetaminophen 5/325 mg Tablet PO PRN ×4 (02:09→20:52)
[2019-04-22 05:37] LABS: #Basophils 0.1 thou/uL (0.0-0.2); #Eosinphils 0.3 thou/uL (0.0-0.7); #Lymphocytes 2.7 thou/uL (1.20-3.40); #Monocytes 0.7 thou/uL (0.11-0.59); #Neutrophils 4.6 thou/uL (1.40-6.50); %Basophils 0.7 % (0.0-1.0); %Eosinophils 3.4 % (0.0-10.0); %Lymphocytes 32.2 % (21.0-51.0); %Neutrophils 55.7 % (42.0-75.0); Hemoglobin 9.5 g/dL (14.0-18.0); Mean Corpuscular HGB CONC 32.8 g/dL (32.0-36.0); Mean Corpuscular Hemoglobin 28.5 pg (27.0-31.0); Mean Platelet Volume 5.5 fL (7.4-10.4); Platelet Count 693 thou/uL (130-400); RBC Distribution Width 13.9 % (11.5-14.5); Red Blood Cell (RBC) Count 3.32 mill/uL (4.70-6.10); White Blood Cell (WBC) Count 8.3 thou/uL (4.8-10.8)
[2019-04-22 05:58] LABS: Anion Gap 11 mmol/L (10-20); BUN (Urea Nitrogen) 19 mg/dL (8.4-25.7); Calc. Creatinine Clearance 67 mL/min (70-130); Carbon Dioxide 29 mmol/L (23-31); Chloride 99 mmol/L (98-107); Estimated GFR-MDRD Greater than 90; Glucose 95 mg/dL (80-115); Potassium 4.4 mmol/L (3.5-5.1); Sodium 135 mmol/L (136-145)
[2019-04-22] MEDS: Mometasone/Formoterol 120 PUFF INHALER INH SCH ×2 (06:47→18:55)
[2019-04-22] MEDS: Gabapentin 400 MG CAP PO SCH ×3 (07:42→20:51)
[2019-04-22] MEDS: Fluticasone Propionate Nasal Spray 16 gm Bottle NASAL SCH ×2 (07:42→20:51)
[2019-04-22] MEDS: Cefdinir 300 MG CAP PO SCH ×2 (07:43→20:51)
[2019-04-22] MEDS: Fluconazole 100 MG TAB PO SCH (07:43)
[2019-04-22] MEDS: prednisoLONE 1% Ophth Susp 5 ml Bottle EA EYE SCH (07:43)
[2019-04-22] MEDS: Acyclovir 800 mg Tablet PO SCH (07:43)
[2019-04-22] MEDS: cycloSPORINE 0.05% Ophthalmic Droperette EA EYE SCH ×2 (08:06→21:00)
[2019-04-22] MEDS ORDERED: PROVENTIL INHALER 6.7 G (200 INHALATIONS) INH PRN (16:57)
[2019-04-22] MEDS: Latanoprost 0.005% Ophth Soln 2.5 ml Bottle EA EYE SCH (20:51)
[2019-04-22] MEDS: Nicotine 21 MG PATCH TOP SCH (20:54)
[2019-04-23] MEDS: HYDROcodone/Acetaminophen 5/325 mg Tablet PO PRN ×3 (02:33→14:24)
[2019-04-23 05:01] LABS: #Basophils 0.1 thou/uL (0.0-0.2); #Eosinphils 0.3 thou/uL (0.0-0.7); #Lymphocytes 2.3 thou/uL (1.20-3.40); #Monocytes 0.8 thou/uL (0.11-0.59); #Neutrophils 4.5 thou/uL (1.40-6.50); %Basophils 0.7 % (0.0-1.0); %Eosinophils 4.2 % (0.0-10.0); %Lymphocytes 28.8 % (21.0-51.0); %Monocytes 10.2 % (0.0-10.0); Hemoglobin 9.5 g/dL (14.0-18.0); Mean Corpuscular HGB CONC 32.7 g/dL (32.0-36.0); Mean Corpuscular Hemoglobin 28.6 pg (27.0-31.0); Mean Corpuscular Volume 87.3 fL (78.0-98.0); Mean Platelet Volume 5.6 fL (7.4-10.4); Platelet Count 706 thou/uL (130-400); Red Blood Cell (RBC) Count 3.32 mill/uL (4.70-6.10); White Blood Cell (WBC) Count 7.9 thou/uL (4.8-10.8)
[2019-04-23 05:21] LABS: Anion Gap 13 mmol/L (10-20); BUN (Urea Nitrogen) 23 mg/dL (8.4-25.7); Calc. Creatinine Clearance 57 mL/min (70-130); Calcium 8.6 mg/dL (7.8-10.44); Carbon Dioxide 26 mmol/L (23-31); Chloride 99 mmol/L (98-107); Estimated GFR-MDRD 84; Glucose 112 mg/dL (80-115); Potassium 4.2 mmol/L (3.5-5.1); Sodium 134 mmol/L (136-145)
[2019-04-23] MEDS: Mometasone/Formoterol 120 PUFF INHALER INH SCH (06:28)
--- NOTE | 2019-04-23 07:57 | EKG ---
Test Reason : Blood Pressure : / mmHG Vent. Rate : 076 BPM Atrial Rate : 076 BPM P-R Int : 118 ms QRS Dur : 100 ms QT Int : 428 ms P-R-T Axes : 082 077 082 degrees QTc Int : 481 ms Normal sinus rhythm Prolonged QT Abnormal ECG When compared with ECG of 12-APR-2019 13:40, (Unconfirmed) No significant change was found Confirmed by ROXANA WEST ([id number]) on 04/23/2019 7:57:26 AM Referred By: LUIS ARMANDO Confirmed By:ROXANA WEST
[2019-04-23] MEDS: Fluconazole 100 MG TAB PO SCH (08:41)
[2019-04-23] MEDS: Cefdinir 300 MG CAP PO SCH (08:41)
[2019-04-23] MEDS: prednisoLONE 1% Ophth Susp 5 ml Bottle EA EYE SCH (08:42)
[2019-04-23] MEDS: Fluticasone Propionate Nasal Spray 16 gm Bottle NASAL SCH (08:42)
[2019-04-23] MEDS: Acyclovir 800 mg Tablet PO SCH (08:42)
[2019-04-23] MEDS: Gabapentin 400 MG CAP PO SCH ×2 (08:45→14:24)
[2019-04-23] MEDS: cycloSPORINE 0.05% Ophthalmic Droperette EA EYE SCH (10:13)
[2019-04-23 15:51] VITALS: BP 121/74; TEMP 98.3
[2019-04-24] MEDS ORDERED: FLU VACC QS2019-20(6MOS UP)/PF 60 MCG/0.5 ML SYRINGE IM ONE (11:30)
== END 2019-04-23 15:51 | disposition home or self-care (01) | DRG 378 ==
LOC: ERS 12:50 → T4-A 14:52
PROVIDERS: ADMIT Internal Medicine; ATTEND Internal Medicine
PROC: 30233N1 Transfusion of Nonautologous Red Blood Cells into Peripheral Vein, Percutaneous Approach (ICD-10-PCS; 2019-04-12)
PROC: 3E02340 Introduction of Influenza Vaccine into Muscle, Percutaneous Approach (ICD-10-PCS; 2019-04-12)
PROC: 0W3P8ZZ Control Bleeding in Gastrointestinal Tract, Via Natural or Artificial Opening Endoscopic (ICD-10-PCS; principal; 2019-04-13)
PROC: 0DB78ZX Excision of Stomach, Pylorus, Via Natural or Artificial Opening Endoscopic, Diagnostic (ICD-10-PCS; 2019-04-13)
PROC: 0DJ08ZZ Inspection of Upper Intestinal Tract, Via Natural or Artificial Opening Endoscopic (ICD-10-PCS; 2019-04-17)
DX: K29.71 Gastritis, unspecified, with bleeding (principal); D62 Acute posthemorrhagic anemia; E44.0 Moderate protein-calorie malnutrition; B37.81 Candidal esophagitis; Z68.1 Body mass index [BMI] 19.9 or less, adult; K25.4 Chronic or unspecified gastric ulcer with hemorrhage; F17.210 Nicotine dependence, cigarettes, uncomplicated; J44.9 Chronic obstructive pulmonary disease, unspecified; E78.5 Hyperlipidemia, unspecified; T39.395A Adverse effect of other nonsteroidal anti-inflammatory drugs [NSAID], initial encounter; Z94.7 Corneal transplant status; Z90.49 Acquired absence of other specified parts of digestive tract; Z88.5 Allergy status to narcotic agent; Z79.51 Long term (current) use of inhaled steroids; Z79.899 Other long term (current) drug therapy; Z23 Encounter for immunization
CPT/HCPCS: 36415; 36430; 71045; 71046; 74176; 80048; 80053; 80074; 80306; 81003; 82274; 82728; 83540; 83550; 84484; 85014; 85018; 85025; 86850; 86900; 86901; 87522; 88305; 88312; 88342; 90471; 90686; 93005; 93010; 94664; 96374; C9113; G0008; J0171; J2001; J2550; J2704; J3010; J3490; P9016

== ENCOUNTER 2022-01-09 14:06 | Observation (INO) | payer OTHER ==
[2022-01-09 14:43] LABS: #Basophils 0.1 thou/uL (0.0-0.2); #Eosinphils 0.3 thou/uL (0.0-0.7); #Lymphocytes 2.5 thou/uL (1.20-3.40); #Monocytes 0.7 thou/uL (0.11-0.59); #Neutrophils 5.4 thou/uL (1.40-6.50); %Eosinophils 2.8 % (0.0-10.0); %Lymphocytes 28.1 % (21.0-51.0); %Monocytes 7.4 % (0.0-10.0); %Neutrophils 60.7 % (42.0-75.0); Hemoglobin 12.3 g/dL (14.0-18.0); Mean Corpuscular HGB CONC 31.8 g/dL (32.0-36.0); Mean Corpuscular Hemoglobin 28.5 pg (27.0-31.0); Mean Corpuscular Volume 89.4 fL (78.0-98.0); Mean Platelet Volume 5.7 fL (7.4-10.4); Platelet Count 510 thou/uL (130-400); RBC Distribution Width 13.9 % (11.5-14.5); Red Blood Cell (RBC) Count 4.34 mill/uL (4.70-6.10); White Blood Cell (WBC) Count 8.9 thou/uL (4.8-10.8)
[2022-01-09] MEDS ORDERED: Aspirin Chewable 81 MG TAB ONE (14:47)
[2022-01-09] MEDS ORDERED: Nitroglycerin 2% Ointment 1 INCH/1 GM Packet ONE (14:47)
[2022-01-09 15:07] LABS: ALT (SGPT) 11 U/L (8-55); AST (SGOT) 16 U/L (5-34); Albumin 3.7 g/dL (3.4-4.8); Alkaline Phosphatase 63 U/L (40-110); Anion Gap 14 mmol/L (10-20); BUN (Urea Nitrogen) 19 mg/dL (8.4-25.7); Bilirubin, Total 0.4 mg/dL (0.2-1.2); Calc. Creatinine Clearance 0 mL/min (70-130); Calcium 8.8 mg/dL (7.8-10.44); Carbon Dioxide 25 mmol/L (23-31); Chloride 101 mmol/L (98-107); Globulin 3.4 g/dL (2.4-3.5); Glucose 106 mg/dL (80-115); Lipase 29 U/L (8-78); Potassium 3.8 mmol/L (3.5-5.1); Protein, Total 7.1 g/dL (5.8-8.1); Sodium 136 mmol/L (136-145)
[2022-01-09 17:51] LABS: Troponin I Less than 0.010 ng/mL (< 0.028)
[2022-01-09] MEDS ORDERED: Ondansetron PF 4 MG/2 ML Vial IVP PRN (19:15)
[2022-01-09] MEDS ORDERED: Sodium Chloride 0.9% 1,000 ML IV SCH (19:15)
[2022-01-09] MEDS ORDERED: Ondansetron ODT 4 MG TAB SL PRN (19:15)
[2022-01-09 19:33] VITALS: BMI 18.9
[2022-01-09 21:31] LABS: Troponin I Less than 0.010 ng/mL (< 0.028)
[2022-01-09] MEDS ORDERED: Acetaminophen 325 MG TAB PO PRN (21:47)
[2022-01-09] MEDS ORDERED: Guaifenesin DM 100-10/5 ML UDCUP PO PRN (21:47)
[2022-01-09] MEDS ORDERED: Zolpidem Tartrate 5 MG TAB PO PRN (21:47)
[2022-01-09] MEDS ORDERED: Nitroglycerin 0.4 MG TAB (25 Tab Bottle) SL PRN (21:47)
[2022-01-09] MEDS ORDERED: Ketorolac Tromethamine 30 MG/ML VIAL IVP PRN (21:51)
[2022-01-09] MEDS ORDERED: Albuterol Sulfate 2.5 mg/3 ml Neb NEB PRN (21:56)
[2022-01-09] MEDS ORDERED: Nicotine 21 MG PATCH TD SCH (22:00)
[2022-01-09] MEDS ORDERED: Aspirin 325 MG TAB PO SCH (22:00)
[2022-01-10 05:03] LABS: #Basophils 0.1 thou/uL (0.0-0.2); #Eosinphils 0.4 thou/uL (0.0-0.7); #Lymphocytes 2.9 thou/uL (1.20-3.40); #Monocytes 0.9 thou/uL (0.11-0.59); #Neutrophils 4.2 thou/uL (1.40-6.50); %Basophils 0.9 % (0.0-1.0); %Eosinophils 4.9 % (0.0-10.0); %Lymphocytes 33.9 % (21.0-51.0); %Monocytes 10.3 % (0.0-10.0); Hemoglobin 12.3 g/dL (14.0-18.0); Mean Corpuscular HGB CONC 31.2 g/dL (32.0-36.0); Mean Corpuscular Hemoglobin 28.1 pg (27.0-31.0); Mean Corpuscular Volume 89.9 fL (78.0-98.0); Mean Platelet Volume 5.8 fL (7.4-10.4); Platelet Count 505 thou/uL (130-400); Red Blood Cell (RBC) Count 4.37 mill/uL (4.70-6.10); White Blood Cell (WBC) Count 8.4 thou/uL (4.8-10.8)
[2022-01-10 05:25] LABS: ALT (SGPT) 11 U/L (8-55); AST (SGOT) 12 U/L (5-34); Albumin 3.5 g/dL (3.4-4.8); Alkaline Phosphatase 59 U/L (40-110); Anion Gap 12 mmol/L (10-20); BUN (Urea Nitrogen) 25 mg/dL (8.4-25.7); Bilirubin, Total 0.2 mg/dL (0.2-1.2); Calc. Creatinine Clearance 66 mL/min (70-130); Calcium 9.2 mg/dL (7.8-10.44); Carbon Dioxide 26 mmol/L (23-31); Chloride 106 mmol/L (98-107); Cholesterol 156 mg/dl (< 200 Desired); Globulin 3.1 g/dL (2.4-3.5); Glucose 97 mg/dL (80-115); HDL Cholesterol 39 mg/dL (>60 Neg Risk); LDL Cholesterol, Calculated 104 mg/dL; Potassium 4.4 mmol/L (3.5-5.1); Protein, Total 6.6 g/dL (5.8-8.1); Sodium 140 mmol/L (136-145); Triglycerides 66 mg/dL (Less than 150)
[2022-01-10] MEDS ORDERED: Mometasone 200 MCG/Formoterol 5 MCG 120 PUFF INHALER INH SCH (06:30)
[2022-01-10 08:16] VITALS: BP 168/79; TEMP 97.4
[2022-01-10] MEDS ORDERED: Famotidine 20 MG TAB PO SCH (09:00)
[2022-01-10] MEDS ORDERED: Cyclobenzaprine 10 MG TAB PO SCH (09:00)
[2022-01-10] MEDS ORDERED: Gabapentin 400 MG CAP PO SCH (09:00)
[2022-01-10] MEDS ORDERED: Enoxaparin Sodium 40 MG/0.4 ML SYRINGE SC SCH (09:00)
[2022-01-10] MEDS ORDERED: Acyclovir 800 mg Tablet PO SCH (09:00)
[2022-01-10] MEDS ORDERED: Aspirin Chewable 81 MG TAB PO SCH (09:00)
[2022-01-10] MEDS ORDERED: Latanoprost 0.005% Ophth Soln 2.5 ml Bottle EA EYE SCH (21:00)
[2022-01-10] MEDS ORDERED: Atorvastatin Calcium 20 MG TAB PO SCH (21:00)
== END 2022-01-10 09:28 | disposition left against medical advice (07) ==
LOC: ERS 14:06 → 2SW 15:56
PROVIDERS: ADMIT Internal Medicine; ATTEND Internal Medicine
DX: R07.9 Chest pain, unspecified (principal); G89.29 Other chronic pain; M54.9 Dorsalgia, unspecified; Z53.29 Procedure and treatment not carried out because of patient's decision for other reasons; Z20.822 Contact with and (suspected) exposure to COVID-19; J44.9 Chronic obstructive pulmonary disease, unspecified; E78.5 Hyperlipidemia, unspecified; Z79.899 Other long term (current) drug therapy; Z88.5 Allergy status to narcotic agent; Z91.018 Allergy to other foods
CPT/HCPCS: 36415; 71045; 80053; 80061; 83690; 83880; 84484; 85025; 93005; 94760; 96374; G0378; J1885; U0003; U0005

== ENCOUNTER 2023-05-04 22:10 | Emergency (ER) | payer OTHER ==
[2023-05-04] MEDS ORDERED: Lidocaine 2% PF 5 ML VIAL ONE (23:36)
[2023-05-04] MEDS ORDERED: Nicotine 14 MG PATCH ONE (23:40)
[2023-05-05] MEDS ORDERED: Nicotine 21 MG PATCH TOP SCH (00:15)
[2023-05-05] MEDS ORDERED: Bacitracin 1 PK ONE (00:32)
== END 2023-05-05 00:49 | disposition home or self-care (01) ==
LOC: ERS 22:10
DX: S60.450A Superficial foreign body of right index finger, initial encounter (principal); J44.9 Chronic obstructive pulmonary disease, unspecified; Z87.891 Personal history of nicotine dependence; W45.8XXA Other foreign body or object entering through skin, initial encounter
CPT/HCPCS: 10120; 93005; J2001

== ENCOUNTER 2024-02-07 13:12 | Emergency (ER) | payer OTHER ==
[2024-02-07 14:07] LABS: #Basophils 0.03 10x3/uL (0.0-0.2); %Basophils 0.3 % (0.0-1.0); %Eosinophils 0.7 % (0.0-10.0); %Lymphocytes 9.9 % (21.0-51.0); %Monocytes 7.3 % (0.0-10.0); %Neutrophils 81.4 % (42.0-75.0); Hematocrit 50.5 % (42.0-52.0); Hemoglobin 16.1 g/dL (14.0-18.0); Mean Corpuscular HGB CONC 31.9 g/dL (32.0-36.0); Mean Corpuscular Hemoglobin 27.3 pg (27.0-31.0); Mean Corpuscular Volume 85.6 fL (78.0-98.0); Platelet Count 261 10x3/uL (130-400); RBC Distribution Width 16.7 % (11.5-14.5)
[2024-02-07 14:25] LABS: ALT (SGPT) 15 U/L (8-55); AST (SGOT) 22 U/L (5-34); Albumin 3.3 g/dL (3.4-4.8); Alkaline Phosphatase 79 U/L (40-110); Anion Gap 13 mmol/L (10-20); BUN (Urea Nitrogen) 26 mg/dL (8.4-25.7); Bilirubin, Total 0.2 mg/dL (0.2-1.2); Calc. Creatinine Clearance 0 mL/min (70-130); Calcium 8.7 mg/dL (7.8-10.44); Carbon Dioxide 22 mmol/L (23-31); Chloride 105 mmol/L (98-107); Estimated GFR 67; Globulin 3.1 g/dL (2.4-3.5); Glucose 104 mg/dL (80-115); Magnesium 1.8 mg/dL (1.6-2.6); Potassium 4.3 mmol/L (3.5-5.1); Protein, Total 6.4 g/dL (5.8-8.1); Sodium 136 mmol/L (136-145)
[2024-02-07 14:29] LABS: Troponin I 0.028 ng/mL (< 0.028)
[2024-02-07] MEDS ORDERED: Nicotine 14 MG PATCH ONE (14:47)
== END 2024-02-07 15:55 | disposition home or self-care (01) ==
LOC: ERS 13:12
DX: R07.89 Other chest pain (principal); J44.9 Chronic obstructive pulmonary disease, unspecified; F17.210 Nicotine dependence, cigarettes, uncomplicated; Z55.6 Problems related to health literacy
CPT/HCPCS: 36415; 71045; 80053; 83735; 84484; 85025; 93005